=== PATIENT | male | born 1985 | race American Indian/Alaskan Native ===

== ENCOUNTER 2017-11-16 06:51 | Emergency (ER) | payer BC ==
[2017-11-16 07:27] VITALS: BP 122/65
[2017-11-16] MEDS ORDERED: TORADOL IM ONE (09:16)
--- NOTE | 2017-11-16 09:16 | Emergency Department Report ---
ED Back Pain/Injury HPI - General Chief Complaint: Back Pain/Injury Stated Complaint: LOW BACK PAIN Time Seen by Provider: 11/16/17 09:09 Source: patient Limitations: Physical Limitation - History of Present Illness Initial Comments: 31-year-old -[place] male comes in complaining of severe lower back pain. Patient reports that is mostly on the right side at the right flank area. Patient denies any dysuria and denies any hematuria denies any trauma. He reports that it started about 5 days ago and progressively getting worse. Patient reports he is taking ibuprofen without much relief. Patient reports no past medical history currently takes no medications on a daily basis and has no known drug allergies. MD Complaint: back pain -: days(s) (5) Similar Symptoms Previously: No Radiation: none Severity: severe Severity scale (0 -10): 10 Quality: burning, stabbing Improves With: none Worsens With: movement, supine, sitting upright, walking Associated Symptoms: denies other symptoms - Related Data Previous Rx's Medication Instructions Recorded Last Taken Type Diclofenac Sodium 50 mg PO Q8H PRN #15 tablet. 11/16/17 Unknown Rx Allergies Allergy/AdvReac Type Severity Reaction Status Date / Time No Known Allergies Allergy Unverified 11/16/17 07:30 ED Review of Systems ROS: Stated complaint: LOW BACK PAIN Other details as noted in HPI Constitutional: denies: chills, fever Eyes: denies: eye pain, eye discharge, vision change ENT: denies: ear pain, throat pain Respiratory: denies: cough, shortness of breath, wheezing Cardiovascular: denies: chest pain, palpitations Endocrine: no symptoms reported Gastrointestinal: denies: abdominal pain, nausea, diarrhea Genitourinary: denies: urgency, dysuria Musculoskeletal: back pain. denies: joint swelling, arthralgia Skin: denies: rash, lesions Neurological: denies: headache, weakness, paresthesias Psychiatric: denies: anxiety, depression Hematological/Lymphatic: denies: easy bleeding, easy bruising ED Past Medical Hx - Past Medical History Previous Medical History?: No - Surgical History Past Surgical History?: Yes Additional Surgical History: Surgical repair left hand - Social History Smoking Status: Never Smoker Substance Use Type: None - Medications Home Medications: Home Medications Medication Instructions Recorded Confirmed Last Taken Type Diclofenac Sodium 50 mg PO Q8H PRN #15 tablet. 11/16/17 Unknown Rx ED Physical Exam - General Limitations: Physical Limitation General appearance: alert, in no apparent distress - Eye Eye exam: Present: normal appearance - ENT ENT exam: Present: mucous membranes moist - Neck Neck exam: Present: normal inspection - Respiratory Respiratory exam: Present: normal lung sounds bilaterally. Absent: respiratory distress - Cardiovascular Cardiovascular Exam: Present: regular rate, normal rhythm. Absent: systolic murmur, diastolic murmur, rubs, gallop - GI/Abdominal GI/Abdominal exam: Present: soft, normal bowel sounds - Rectal Rectal exam: Present: deferred - Extremities Exam Extremities exam: Present: normal inspection - Back Exam Back exam: Present: normal inspection, full ROM, CVA tenderness (R) - Neurological Exam Neurological exam: Present: alert, oriented X3 - Psychiatric Psychiatric exam: Present: normal affect (with pain), normal mood - Skin Skin exam: Present: warm, dry, intact, normal color. Absent: rash ED Course Vital Signs 11/16/17 07:19 Temperature 98.4 F Pulse Rate 61 Respiratory 18 Rate Blood Pressure 122/65 Blood Pressure 122/65 [Right] O2 Sat by Pulse 97 Oximetry ED Medical Decision Making - Radiology Data Radiology results: report reviewed, image reviewed INDINGS: Noncontrast abdomen and pelvis CT performed. LUNG BASES: Mild nonspecific distal esophageal wall prominence/thickening, not excluded for gastroesophageal reflux and/or hiatal hernia, amongst others. ABDOMEN: Please note that sensitivity to detect small visceral lesions is limited due to the absence of intravenous or oral contrast. However, grossly unremarkable unenhanced liver, spleen, gallbladder, pancreas, adrenals, non-aneurysmal abdominal aorta and the IVC. No ascites or size significant adenopathy. Nonopacified GI tract evaluation limited, though grossly nonobstructive. Normal appendix. Specifically, the kidneys are unremarkable bilaterally without hydronephrosis or radiopaque renal calculi. PELVIS: Nonopacified urinary bladder suboptimally distended and assessed. Otherwise grossly unremarkable unenhanced seminal vesicles, prostate and rectosigmoid. No free fluid or significant adenopathy. Presumed posttraumatic 2.6 x 1.3 cm asymmetric ossification/spur extends anteriorly off the pubic symphysis on the left, axial image 197, series 2. Left SI joint degenerative bridging. CONCLUSION: No acute CT abnormality with few incidental findings, as above. Thank you for the opportunity to participate in this patient's care. Transcribed By: RS Dictated By: GISSELLE NICHOLE MD Electronically Authenticated By: GISSELLE NICHOLE MD Signed Date/Time: 11/16/17958 DD/ 2 TD/TT: 11/16/17958 - Medical Decision Making Patient's been evaluated by this provider fast track. Toradol and injection 30 mg was ordered. Urinalysis and CT of the abdomen with contrast. This providers concern for renal stone patient's excruciating pain with arthralgia and right CVA tenderness. Critical care attestation.: If time is entered above; I have spent that time in minutes in the direct care of this critically ill patient, excluding procedure time. ED Disposition Clinical Impression: Back pain at L4-L5 level Disposition: DC-01 TO HOME OR SELFCARE Is pt being admited?: No Does the pt Need Aspirin: No Condition: Stable Instructions: Back Pain (ED), Low Back Strain (ED) Additional Instructions: Please take pain medication as prescribed. Follow-up with her primary care provider if symptoms persist or gets worse. Prescriptions: Diclofenac Sodium 50 mg PO Q8H PRN #15 tablet.dr LINARES Reason: Pain Referrals: PRIMARY [facility] [Primary Care Provider] - 3-5 Days [facility] [Provider Group] - 3-5 Days Forms: Work/School Release Form(ED)
[2017-11-16 09:46] LABS: Bilirubin,Urine NEG (Negative); Blood,Urine NEG (Negative); Color,Urine Yellow (Yellow); Mucus,Urine 3+ /HPF; Urobilinogen,Urine < 2.0 mg/dL (<2.0)
--- NOTE | 2017-11-16 10:04 | Cat Scan Report ---
CT ABDOMEN AND PELVIS WITHOUT CONTRAST INDICATION: Concern for renal stone. COMPARISON: None similar at this institution. FINDINGS: Noncontrast abdomen and pelvis CT performed. LUNG BASES: Mild nonspecific distal esophageal wall prominence/thickening, not excluded for gastroesophageal reflux and/or hiatal hernia, amongst others. ABDOMEN: Please note that sensitivity to detect small visceral lesions is limited due to the absence of intravenous or oral contrast. However, grossly unremarkable unenhanced liver, spleen, gallbladder, pancreas, adrenals, non-aneurysmal abdominal aorta and the IVC. No ascites or size significant adenopathy. Nonopacified GI tract evaluation limited, though grossly nonobstructive. Normal appendix. Specifically, the kidneys are unremarkable bilaterally without hydronephrosis or radiopaque renal calculi. PELVIS: Nonopacified urinary bladder suboptimally distended and assessed. Otherwise grossly unremarkable unenhanced seminal vesicles, prostate and rectosigmoid. No free fluid or significant adenopathy. Presumed posttraumatic 2.6 x 1.3 cm asymmetric ossification/spur extends anteriorly off the pubic symphysis on the left, axial image 197, series 2. Left SI joint degenerative bridging. CONCLUSION: No acute CT abnormality with few incidental findings, as above. Thank you for the opportunity to participate in this patient's care.
== END 2017-11-16 10:45 | disposition home or self-care (01) ==
LOC: ED 06:51
DX: M54.5 Low back pain (principal)
CPT/HCPCS: 74176; 81001; 96372; 99284; J1885